=== PATIENT | female | born 1945 | race Caucasian/White ===

== ENCOUNTER 2019-07-20 11:51 | Emergency (ER) | payer OTHER ==
[~2019-07-20] VITALS: Ht 160 cm; Wt 57.3 kg
[~2019-07-20 11:51] MED LIST: CEPH-263 PO; PRED50TA PO
[2019-07-20 11:56] VITALS: BP 151/81
--- NOTE | 2019-07-20 12:41 | PHYS DOC ---
Past Medical History Past Medical History: No Pertinent History Past Surgical History: Other Additional Past Surgical Histo: LEFT BREAST LUMPECTOMY Smoking Status: Current Every Day Smoker Additional Information: SMOKES 2 CIGARETTES A DAY Alcohol Use: None Drug Use: None General Adult EDM: Chief Complaint: UPPER EXTREMITY PAIN HPI: HPI: Patient is a 74 year old female who presents to the emergency department with complaints of pain in her right shoulder that radiates down her right arm with movement for the last 2 weeks. Patient denies any known injury, she denies any weakness, numbness, or tingling in the arm. She states that this morning at 2:00 she took 3 ibuprofen for relief of the pain with no benefit. Patient states that her pain is a constant 3 out of 10 on the pain scale but shoots up to 8 with any movement of the right shoulder. She denies any chest pain, shortness of breath, wheezing, dizziness, headache, cough, nausea, vomiting, diarrhea, or diaphoresis. Review of Systems: Review of Systems: Constitutional: Denies fever or chills. [] HENT: Denies nasal congestion or sore throat. [] Respiratory: Denies cough or shortness of breath. [] Cardiovascular: Denies chest pain or edema. [] GI: Denies abdominal pain, nausea, vomiting, or diarrhea. [] Musculoskeletal: See HPI Integument: Denies rash. [] Neurologic: Denies headache, focal weakness or sensory changes. [] Psychiatric: Denies depression or anxiety. [] Heart Score: Risk Factors: Risk Factors: DM, Current or recent (<one month) smoker, HTN, HLP, family history of CAD, obesity. Risk Scores: Score 0 - 3: 2.5% MACE over next 6 weeks - Discharge Home Score 4 - 6: 20.3% MACE over next 6 weeks - Admit for Clinical Observation Score 7 - 10: 72.7% MACE over next 6 weeks - Early Invasive Strategies Allergies: Allergies: Allergies Coded Allergies Type Severity Reaction Last Updated Verified No Known Drug Allergies 10/20/17 No Physical Exam: PE: Constitutional: Well developed, well nourished, no acute distress, non-toxic appearance. [] HENT: Normocephalic, atraumatic, bilateral external ears normal, nose normal. [] Eyes: PERRLA, EOMI, conjunctiva normal, no discharge. [] Neck: Normal range of motion, no stridor. [] Cardiovascular:Heart rate regular rhythm Lungs & Thorax: Respirations even and unlabored, no retractions, no respiratory distress Skin: Warm, dry, no erythema, no rash. [] Back: No tenderness Extremities: Right shoulder bony tenderness to palpation without crepitus or obvious deformity, no cyanosis, no clubbing, ROM limited due to pain, no edema. [] Neurologic: Alert and oriented X 3, no focal deficits noted. [] Psychologic: Affect normal, judgement normal, mood normal. [] Current Patient Data: Vital Signs: Vital Signs Date Time Temp Pulse Resp B/P (MAP) Pulse Ox O2 Delivery O2 Flow Rate FiO2 07/20/19 11:56 98.4 72 16 151/81 (104) 94 Room Air 98.4 EKG: EKG: [] Radiology/Procedures: Radiology/Procedures: PROCEDURE: SHOULDER 2+V RIGHT Three-view right shoulder study Clinical indications: Right shoulder pain for 2 weeks. Pain increases with movement. No known injury. FINDINGS: No acute fracture or dislocation or lytic process is seen. The glenohumeral joint is unremarkable. No AC joint separation is seen. There is mild primary degenerative osteoarthritis of the right AC joint. 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 (See chart for details) 1315- Spoke with Dr. Bedolla about patient and x-ray result. Will have patient take ibuprofen QID prn and prescribed hydrocodone PRN. Pt to follow up with Dr. Bedolla for further evaluation and treatment of shoulder arthritis. Patient verbalized an understanding of home care, medications, follow-up, and return to ED instructions and was in agreement with the plan of care. [] Dragon Disclaimer: [place] Disclaimer: This electronic medical record was generated, in whole or in part, using a voice recognition dictation system. Departure Departure Impression: Primary Impression: Right shoulder pain Qualified Codes: M25.511 - Pain in right shoulder Disposition: HOME, SELF-CARE Condition: STABLE Referrals: NO PCP (PCP) SUNDAY BEDOLLA II, MD Patient Instructions: Arthritis, Nonspecific, [id number], Shoulder Pain, [id number] Additional Instructions: Fill prescription(s) and use as directed. Recommend application of ice, and rest of affected extremity. Follow-up with Dr. Bedolla next week, call today for an appointment. Return to the ER if your symptoms worsen. Scripts Ibuprofen (IBUPROFEN) 600 Mg Tablet 600 MG PO PRN Q6HRS PRN for INFLAMMATION for 10 Days, #30 TAB 0 Refills Prov: REGULO SEGOVIA APRN 07/20/19 Hydrocodone Bit/Acetaminophen (HYDROCODONE-APAP 5-325 ) 1 Tab Tablet 0.5-1 TAB PO PRN Q6HRS PRN for PAIN for 3 Days, #5 TAB 0 Refills Prov: REGUOL SEGOVIA APRN 07/20/19 Justicifation of Admission Dx: Justifications for Admission: Justification of Admission Dx: REGULO [place] APRN Jul 20, 2019 12:41
--- NOTE | 2019-07-20 13:09 | RAD ---
Three-view right shoulder study Clinical indications: Right shoulder pain for 2 weeks. Pain increases with movement. No known injury. FINDINGS: No acute fracture or dislocation or lytic process is seen. The glenohumeral joint is unremarkable. No AC joint separation is seen. There is mild primary degenerative osteoarthritis of the right AC joint. 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 Electronically signed by: Sky Carney MD (07/20/2019 1:06 PM) [id number]
[2019-07-20] MEDS ORDERED: IBUP-1007 PO (13:40)
[2019-07-20] MEDS ORDERED: HYDR-2761 PO (13:40)
== END 2019-07-20 13:46 | disposition home or self-care (01) ==
LOC: ER 11:51
DX: M25.511 Pain in right shoulder (principal); F17.210 Nicotine dependence, cigarettes, uncomplicated; Z98.890 Other specified postprocedural states
CPT/HCPCS: 73030; 99283